=== PATIENT | female | born 1960 | race Caucasian/White ===

== ENCOUNTER 2021-10-18 06:11 | Inpatient (IN) | payer OTHER ==
[~2021-10-18] VITALS: Ht 162.6 cm; Wt 76.2 kg
[~2021-10-18 06:11] MED LIST: LISI20TA28 PO; OXYB3.9D TD; VERA180C4
[2021-10-18] MEDS ORDERED: METHYLENE BLUE 0.5% 5MG/ML 10ml AMP IV ONE (07:13)
[2021-10-18] MEDS ORDERED: BUPIVACAINE W/ EPINEPH 0.25% INJ 50ML MDV ONE (07:14)
[2021-10-18] MEDS ORDERED: BUPIVACAINE 0.25% INJ 50ML VIAL ONE (07:14)
[2021-10-18] MEDS ORDERED: LIDOCAINE 1% HCL (LOCAL ANESTH.) INJ 20ML MDV ONE (07:14)
[2021-10-18] MEDS ORDERED: MIDAZOLAM HCL 2MG/2ML 2ml VIAL (1mg/ml) ONE (07:25)
[2021-10-18] MEDS ORDERED: fentaNYL CITRATE 100 MCG/2 ML VL ONE ×2 (07:25→08:32)
[2021-10-18] MEDS ORDERED: HYDROmorphone HCL 2 MG/ML VL ONE (07:25)
[2021-10-18] MEDS ORDERED: LIDOCAINE 2% (LOCAL ANESTH.) PF 5ml SDV ONE (07:26)
[2021-10-18] MEDS ORDERED: fentaNYL CITRATE 5 ML ONE (07:26)
[2021-10-18] MEDS ORDERED: ROCURONIUM 10MG/ML 10ML VIAL IV ONE (07:26)
[2021-10-18] MEDS ORDERED: ONDANSETRON HCL 4 MG/2 ML VIAL ONE (07:26)
[2021-10-18] MEDS ORDERED: ceFAZolin 1GM/50ML 100 ML IV ONE (07:33)
[2021-10-18] MEDS ORDERED: PROPOFOL 10 MG/ML 20 ML IV ONE (07:47)
[2021-10-18] MEDS ORDERED: ONDANSETRON HCL 4 MG/2 ML VIAL IV PRN ×2 (09:45→10:30)
[2021-10-18] MEDS ORDERED: HYDROmorphone HCL 2 MG/ML VL IV PRN ×2 (09:45)
[2021-10-18] MEDS ORDERED: MORPHINE SULFATE INJECTION 2 MG/ML SYRG IV PRN (10:30)
[2021-10-18] MEDS ORDERED: SODIUM CHLORIDE 0.9% 1,000 ML IV SCH (10:30)
[2021-10-18] MEDS ORDERED: NITROGLYCERIN 0.4 MG SL TAB SL PRN (10:30)
[2021-10-18] MEDS ORDERED: CLINDAMYCIN 900MG IV 50 ML IV ONE (10:30)
[2021-10-18] MEDS ORDERED: ACETAMINOPHEN 500 MG TAB PO PRN (10:30)
[2021-10-18] MEDS: MORPHINE SULFATE 4 MG/ML SYR/VIAL IV PRN ×2 (13:55→20:06)
[2021-10-18 22:47] VITALS: BP 156/76
[2021-10-19 05:07] VITALS: BP 151/75
[2021-10-19 08:36] VITALS: BP 131/66
[2021-10-19 12:38] VITALS: BP 145/85
[2021-10-19 16:53] VITALS: BP 133/90
== END 2021-10-19 19:59 | disposition left against medical advice (07) | DRG 743 ==
LOC: SUR 06:11 → WEST WING 10:34
PROVIDERS: ADMIT Obstetrics & Gynecology; ATTEND Obstetrics & Gynecology
PROC: 0UT24ZZ Resection of Bilateral Ovaries, Percutaneous Endoscopic Approach (ICD-10-PCS; 2021-10-18)
PROC: 0UT74ZZ Resection of Bilateral Fallopian Tubes, Percutaneous Endoscopic Approach (ICD-10-PCS; 2021-10-18)
PROC: 0USG4ZZ Reposition Vagina, Percutaneous Endoscopic Approach (ICD-10-PCS; 2021-10-18)
PROC: 8E0W4CZ Robotic Assisted Procedure of Trunk Region, Percutaneous Endoscopic Approach (ICD-10-PCS; 2021-10-18)
PROC: 0UT94ZZ Resection of Uterus, Percutaneous Endoscopic Approach (ICD-10-PCS; principal; 2021-10-18 07:50)
DX: N81.2 Incomplete uterovaginal prolapse (principal); N81.89 Other female genital prolapse; Z53.29 Procedure and treatment not carried out because of patient's decision for other reasons; Z20.822 Contact with and (suspected) exposure to COVID-19; I10 Essential (primary) hypertension; K21.9 Gastro-esophageal reflux disease without esophagitis; Z88.8 Allergy status to other drugs, medicaments and biological substances; Z88.2 Allergy status to sulfonamides
CPT/HCPCS: 36415; 36600; 71045; 82805; 85379; 86850; 86900; 86901; C1781; G0378; J0690; J2001; J2250; J2405; J2704; J3490